=== PATIENT | female | born 1965 | race American Indian/Alaskan Native ===

== ENCOUNTER 2016-09-20 10:38 | Outpatient (CLI) | payer OTHER ==
--- NOTE | 2016-09-20 12:10 | Fluoroscopy Report ---
BARIUM SWALLOW INDICATION: GERD. COMPARISON: None similar. FINDINGS: Barium swallow performed. Patient swallowed thick and thin barium without any difficulty as also tolerated effervescent granules well. Slight cervical spondylosis. No aspiration or penetration with normal swallowing mechanism. No abnormal pooling within the vallecula or piriform sinuses noted. Esophagus is normal in course and caliber. Normal peristalsis. No suspicious mucosal abnormality. No demonstrable hiatal hernia or gastroesophageal reflux. Visualized gastric fundus is unremarkable. Standard barium tablet passed into the stomach without any difficulty or delay. CONCLUSION: Normal barium swallow. Thank you for the opportunity to participate in this patient's care.
== END 2016-09-20 10:39 | disposition home or self-care (01) ==
LOC: FLUORO 10:38
PROVIDERS: ATTEND Otolaryngology
DX: K21.9 Gastro-esophageal reflux disease without esophagitis (principal); M47.892 Other spondylosis, cervical region
CPT/HCPCS: 74220